=== PATIENT | male | born 2000 | race Caucasian/White ===

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

== ENCOUNTER 2024-01-10 21:26 | Emergency (ER) | payer MEDICAID, OTHER ==
[~2024-01-10] VITALS: Ht 175.3 cm; Wt 65.8 kg
[2024-01-10 22:45] VITALS: BP 130/86; PULSE 83; RESP 15; TEMP 97.1; O2SAT 98
== END 2024-01-10 22:56 | disposition home or self-care (01) ==
LOC: ER 21:27
DX: S41.112A Laceration without foreign body of left upper arm, initial encounter (principal); Z91.09 Other allergy status, other than to drugs and biological substances; W45.8XXA Other foreign body or object entering through skin, initial encounter; Y93.89 Activity, other specified; Y92.89 Other specified places as the place of occurrence of the external cause; Y99.8 Other external cause status
CPT/HCPCS: 99281